=== PATIENT | female | born 1935 | race Caucasian/White ===

== ENCOUNTER 2016-09-10 16:25 | Inpatient (IN) | payer MEDICARE ==
[~2016-09-10] VITALS: Ht 152.4 cm; Wt 53.0 kg
--- NOTE | 2016-09-10 16:38 | NUR ---
EMS TO ER ROOM 9, TO BED WITH ASSIST X 2. TOLERATED WILL.
[2016-09-10 17:06] LABS: HEMATOCRIT 27.3 % (37.0-47.0); HEMOGLOBIN 8.9 g/dl (12.0-16.0); IMMATURE GRANULOCYTES 0.3 % (0.0-1.0); MEAN CELL VOLUME 96.8 fL CALC (80.0-100.0); MEAN CORPUSCULAR HGB 31.6 pG CALC (26.0-32.0); MEAN CORPUSCULAR HGB CONC 32.6 g/L CALC (32.0-36.0); NEUT# 8.2 thou/uL (2.00-7.15); RED BLOOD COUNT 2.82 mill/uL (4.20-5.60); RED CELL DISTRI WIDTH 12.7 % (11.5-15.5)
[2016-09-10] MEDS ORDERED: MEDERMA EX (17:13)
[2016-09-10] MEDS ORDERED: METFORMIN HCL1000 MG PO (17:14)
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
[2016-09-10 17:19] LABS: BILIRUBIN, TOTAL 0.4 mg/dL (0.0-1.4); CALCIUM 9.9 mg/dL (8.4-10.2); CREATININE 3.4 mg/dL (0.5-1.0); TOTAL PROTEIN 7.6 g/dL (6.3-8.2)
[2016-09-10 17:28] LABS: POTASSIUM 5.3 mmol/l (3.5-5.1)
[2016-09-10 17:34] LABS: INTERNATIONAL NORMALIZED RATIO 0.9 RATIO (0.7-1.3); PROTHROMBIN TIME 10.2 SECONDS (9.0-12.5)
[2016-09-10] MEDS ORDERED: MIDODRINE HCL5 MG PO (17:34)
[2016-09-10] MEDS ORDERED: LEVOTHYROXINE100 MCG PO (17:37)
[2016-09-10] MEDS ORDERED: MAG-OXIDE400 MG PO (17:37)
[2016-09-10] MEDS ORDERED: FERR SULFATE325 MG PO (17:37)
[2016-09-10] MEDS ORDERED: ROSUVASTATIN CA20 MG (17:38)
[2016-09-10] MEDS ORDERED: CLOPIDOGREL75 MG PO (17:40)
[2016-09-10] MEDS ORDERED: B121000 MCG PO (17:43)
[2016-09-10] MEDS ORDERED: CENTRUM PO (17:44)
[2016-09-10] MEDS ORDERED: PROTONIX40 M2 PO (17:45)
[2016-09-10] MEDS ORDERED: LOPRESSOR25 M1 PO (17:47)
[2016-09-10] MEDS ORDERED: HYDROXYZINE HCL10 MG PO (17:49)
--- NOTE | 2016-09-10 17:58 | NUR ---
MD AT BEDSIDE EVEALUATING PT AND DISCUSSING PLAN OF CARE
--- NOTE | 2016-09-10 18:32 | NUR ---
ATTEMPTED TO GIVE PATIENT REPORT ON MED SURG WAS INFORMED THEY WOULD CALL ME BACK
--- NOTE | 2016-09-10 18:55 | NUR ---
HARRISON GOEL CALLED REPORT TO MED/SURG.
--- NOTE | 2016-09-10 19:20 | NUR ---
PT TO [id number] WITH ESDRAS AND RN.
[2016-09-10 19:28] VITALS: BP 179/63
--- NOTE | 2016-09-10 19:30 | NUR ---
PT ARRIVED TO UNIT VIA STRETCHER WITH AMANDO ABRAHAM. BEDSIDE REPORT RECEIVED. AMBULATED WITH ONE PERSON ASSIST FROM STRETCHER TO BED. DENIES PAIN AT THIS TIME. NO RESPIRATORY DISTRESS NOTED AT THIS TIME. ORIENTED TO ROOM. CALL LIGHT SYSTEM REVEIWED AND IN REACH.
[2016-09-10 23:10] VITALS: BP 151/55
--- NOTE | 2016-09-11 | NUR ---
PT RESTING IN LEFT SIDE LYING POSITION. TYLENOL GIVEN FOR CRAMPING TO BILATERAL LOWER EXTREMITIES. NO RESPRITORY DISTRESS NOTED. ASSESSMENT COMPLETED AND SKIN CONDITIONS DOCUMENTED WITH PHOTOS IN CHART. IV SITE HAS NO SIGNS OF INFILTRATION OR PHLEBITIS. SAFETY MEASURES IN PLACE. CALL LIGHT WITHIN REACH.
[2016-09-11 03:32] VITALS: BP 155/50
--- NOTE | 2016-09-11 03:52 | NUR ---
PT ASLEEP AT THIS TIME. NO SIGNS OF PAIN OR RESPIRATORY DISTRESS NOTED. SPO2 REMAINS ABOVE 90% ON RA. SAFEY MEASURES IN PLACE. CALL LIGHT WITHIN REACH.
[2016-09-11 05:43] LABS: ALBUMIN 3.2 g/dL (3.2-5.0); CALCIUM 9.5 mg/dL (8.4-10.2); CREATININE 3.3 mg/dL (0.5-1.0)
[2016-09-11 05:44] LABS: POTASSIUM 5.2 mmol/l (3.5-5.1)
[2016-09-11 07:40] LABS: URINE BILIRUBIN - DIPSTICK NEGATIVE (NEGATIVE); URINE BLOOD DIPSTICK TRACE-INTACT (NEGATIVE); URINE CLARITY TURBID; URINE COLOR YELLOW; URINE GLUCOSE - DIPSTICK NEGATIVE (NEGATIVE); URINE KETONE NEGATIVE (NEGATIVE); URINE NITRITE - DIPSTICK NEGATIVE (Negative); URINE PH 5.5 (4.5-8.0); URINE PROTEIN - DIPSTICK 30 mg/dL (NEG-TRACE); URINE UROBILINOGEN - DIPSTICK 0.2 E.U./dL (0.2)
[2016-09-11 07:43] LABS: URINE LEUK ESTERASE MODERATE (NEGATIVE)
[2016-09-11 07:54] LABS: URINE SQUAMOUS EPITHELIAL CELL MODERATE EPI/hpf (0-FEW)
[2016-09-11 07:55] LABS: URINE BACTERIA MANY hpf
[2016-09-11 08:13] VITALS: BP 191/72
--- NOTE | 2016-09-11 08:13 | NUR ---
ASSESSMENT IS NEG, IV SITE IS FREE FROM REDNESS OR EDEMA. CONTINUE TO OSKIERRAVE AND PEPITO.
[2016-09-11] MEDS ORDERED: METFORMIN500 MG PO (11:20)
--- NOTE | 2016-09-11 12:45 | NUR ---
PT IS RELAXING IN BED FAMILY CAME TO THE ROOM TO SEE HER WITH PHARMACIST STUDENTS, IV SITE IS FREE FROM REDNESS OR EDEMA
[2016-09-11] MEDS ORDERED: TRIAMCINOLON0.11 TOP (13:15)
[2016-09-11] MEDS ORDERED: ELIMITE52 TOP (13:17)
[2016-09-11 16:00] VITALS: BP 137/54
--- NOTE | 2016-09-11 19:18 | NUR ---
BEDSIDE REPORT RECEIVED FROM CATRACHO BHANDARI. PT SITTING UP IN BED EATING DINNER. DENIES PAIN. NO RESPIRATORY DISTRESS NOTED. PLAN OF CARE DISCUSSED. ENCOURAGED TO VERBALIZE CONCERNS. PT STATES UNDERSTANDING. SAFETY MEASURES IN PLACE. CALL LIGHT SYSTEM REVIEWED AND IN REACH.
--- NOTE | 2016-09-11 19:18 | NUR ---
BEDSIDE REPORT RECEIVED FROM CATRACHO BHANDARI. PT SITTING UP IN BED EATING DINNER. DENIES PAIN. NO RESPIRATORY DISTRESS NOTED. PLAN OF CARE DISCUSSED. ENCOURAGED TO VERBALIZE CONCERNS. PT STATES UNDERSTANDING. SAFETY MEASURE IN PLACE. CALL LIGHT SYSTEM REVIEWED AND IN REACH.
[2016-09-11 19:20] VITALS: BP 143/59
[2016-09-11 23:15] VITALS: BP 167/67
--- NOTE | 2016-09-12 | NUR ---
PT RESTING IN BED WATCHING TV. DENIES PAIN. RESPIRATIONS EVEN AND UNLABORED. UP TO BATHROOM PERIODICALLY WITH ASSIST. NO NEEDS AT THIS TIME. SAFETY MEASURES REMAIN IN PLACE. CALL LIGHT WITHIN REACH.
--- NOTE | 2016-09-12 03:54 | NUR ---
PT ASLEEP AT THIS TIME. NO SIGNS OF PAIN NOTED. REPIRATIONS EVEN AND UNLABORED. NEW IV TO RFA INFUSING IV FLUID ADEQUATELY. SITE APPEARS HEALTHY WITH NO SINGS OF INFILTRATION OR PHLEBITIS. SAFETY MEASURES REMAIN IN PLACE. CALL LIGHT WITHIN REACH.
[2016-09-12 05:00] VITALS: BP 139/58
[2016-09-12 06:19] LABS: HEMATOCRIT 23.3 % (37.0-47.0); HEMOGLOBIN 7.6 g/dl (12.0-16.0); IMMATURE GRANULOCYTES 0.3 % (0.0-1.0); MEAN CELL VOLUME 97.1 fL CALC (80.0-100.0); MEAN CORPUSCULAR HGB 31.7 pG CALC (26.0-32.0); MEAN CORPUSCULAR HGB CONC 32.6 g/L CALC (32.0-36.0); NEUT# 5.74 thou/uL (2.00-7.15); RED BLOOD COUNT 2.4 mill/uL (4.20-5.60); RED CELL DISTRI WIDTH 12.7 % (11.5-15.5)
[2016-09-12 06:39] LABS: CREATININE 3.3 mg/dL (0.5-1.0); POTASSIUM 4.7 mmol/l (3.5-5.1)
--- NOTE | 2016-09-12 08:00 | NUR ---
SHIFT CHANGE REPORT FROM [place] CAMARENA SLEEPING AT THIS TIME, BREATHING EVEN AND NON-LABORED, IVF INFUSING, TELE MONITOR IN PLACE, CALL KIM IN REACH, WILL CONTINUE TO MONITOR.
[2016-09-12 10:16] VITALS: BP 155/53
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
[2016-09-12 14:23] VITALS: BP 172/56
[2016-09-12 16:41] VITALS: BP 151/46
--- NOTE | 2016-09-12 16:54 | NUR ---
RESTING IN BED AT THIS TIME, STATES MED GIVEN EARLIER HEALPED GREATLY IN RELIEVING HER ITCHING, ALL NEEDS ADDRESSED, CALL KIM IN REACH.
[2016-09-12 19:52] VITALS: BP 180/57
--- NOTE | 2016-09-12 20:31 | NUR ---
ACCUCHECK 123, BED TIME SNACK PROVIDED.
[2016-09-12 21:52] VITALS: BP 160/58
--- NOTE | 2016-09-13 00:30 | NUR ---
RESTING WITH EYES CLOSED, RESPIRATIONS EVEN AND UNLABORED.
[2016-09-13 05:26] VITALS: BP 162/97
--- NOTE | 2016-09-13 05:30 | NUR ---
RESTING IN SEMIFOWELRS WITH EYES CLOSED RESPIRATIONS EVEN AND UNLABORED. VOICES NO CONCERNS.
[2016-09-13 05:53] LABS: HEMOGLOBIN 7.3 g/dl (12.0-16.0); IMMATURE GRANULOCYTES 0.3 % (0.0-1.0); MEAN CELL VOLUME 98.3 fL CALC (80.0-100.0); MEAN CORPUSCULAR HGB 31.2 pG CALC (26.0-32.0); MEAN CORPUSCULAR HGB CONC 31.7 g/L CALC (32.0-36.0); NEUT# 6.6 thou/uL (2.00-7.15); RED BLOOD COUNT 2.34 mill/uL (4.20-5.60); RED CELL DISTRI WIDTH 12.8 % (11.5-15.5)
[2016-09-13 06:08] LABS: ALBUMIN 2.9 g/dL (3.2-5.0); CALCIUM 8.6 mg/dL (8.4-10.2); CREATININE 2.6 mg/dL (0.5-1.0); POTASSIUM 4.4 mmol/l (3.5-5.1)
--- NOTE | 2016-09-13 07:00 | NUR ---
SHIFT CHANGE REPORT FROM RODDY, [place] SLEEPING BUT RESPONDS TO VERBAL STIMULI, NO C/O PAIN OR DISCOMFORT AT THIS TIME, IVF INFUSING, TELE MONITOR IN PLACE, CALL KIM IN REACH.
[2016-09-13 07:36] VITALS: BP 181/58
[2016-09-13 07:57] LABS: URINE BILIRUBIN - DIPSTICK NEGATIVE (NEGATIVE); URINE BLOOD DIPSTICK NEGATIVE (NEGATIVE); URINE CLARITY CLEAR; URINE COLOR YELLOW; URINE GLUCOSE - DIPSTICK NEGATIVE (NEGATIVE); URINE KETONE NEGATIVE (NEGATIVE); URINE LEUK ESTERASE NEGATIVE (Negative); URINE NITRITE - DIPSTICK NEGATIVE (Negative); URINE PH 5.5 (4.5-8.0); URINE PROTEIN - DIPSTICK TRACE mg/dL (NEG-TRACE); URINE UROBILINOGEN - DIPSTICK 0.2 E.U./dL (0.2)
[2016-09-13 11:03] VITALS: BP 186/68
--- NOTE | 2016-09-13 12:00 | NUR ---
SITTING UP ON EDGE OF BED HAVING MEAL AT THIS TIME, ITCHING PERSISTS BUT IMPROVING, ALL NEEDS ADDRESSED, CALL JUDY IN REACCH.
--- NOTE | 2016-09-13 15:43 | NUR ---
RESTING SNUGLY IN BED UNDER COVERS AT THIS TIME, ALL NEEDS MET/ADDRESSED, CALL KIM IN REACH.
[2016-09-13 15:50] VITALS: BP 158/56
[2016-09-13 18:55] VITALS: BP 189/78
--- NOTE | 2016-09-13 19:00 | NUR ---
RECEIVED REPORT ON PATIENT FROM OFF GOING NURSE. PATIENT IS LYING IN BED, NO ACUTE DISTRESS NOTED.
[2016-09-14] VITALS: BP 184/78
--- NOTE | 2016-09-14 | NUR ---
PATIENT SITTING UP AT BEDSIDE PICKING AT BLISTERS ON SKIN AND SCRATCHING HER SKIN. PATIENT SEEMS TO BLEEDING FROM SCRATCHING. AIR MOTOR REPAIRER CLEANED UP PATIENT.
--- NOTE | 2016-09-14 04:00 | NUR ---
PATIENT RESTING QUIETLY. NO ACUTE DISTRESS NOTED.
[2016-09-14 05:14] LABS: HEMATOCRIT 22.3 % (37.0-47.0); HEMOGLOBIN 7.3 g/dl (12.0-16.0); IMMATURE GRANULOCYTES 0.3 % (0.0-1.0); MEAN CELL VOLUME 96.1 fL CALC (80.0-100.0); MEAN CORPUSCULAR HGB 31.5 pG CALC (26.0-32.0); MEAN CORPUSCULAR HGB CONC 32.7 g/L CALC (32.0-36.0); NEUT# 6.27 thou/uL (2.00-7.15); RED BLOOD COUNT 2.32 mill/uL (4.20-5.60); RED CELL DISTRI WIDTH 12.6 % (11.5-15.5)
[2016-09-14 05:17] LABS: CALCIUM 8.8 mg/dL (8.4-10.2); CREATININE 2.5 mg/dL (0.5-1.0); POTASSIUM 4.4 mmol/l (3.5-5.1)
[2016-09-14 05:20] VITALS: BP 148/58
--- NOTE | 2016-09-14 07:00 | NUR ---
SHIFT CHANGE REPORT FROM JASON, [place] SLEEPING AT THIS TIME BUT RESPONDS TO VERBAL STIMULI, C/O ITCHING AT THIS TIME AND STATES BENADRYL RELIEVES CONDITION, IVF INFUSING, CALL KIM IN REACH.
[2016-09-14 07:35] VITALS: BP 164/58
[2016-09-14] MEDS ORDERED: DIPHENHYDRAM25 MG PO (11:28)
[2016-09-14 12:17] VITALS: BP 145/53
--- NOTE | 2016-09-14 13:00 | NUR ---
PT INFORMED OF D/C ORDERS, ENCOURAGED TO SIT AND HAVE MEAL, ALL QUESTIONS ADDRESSED, CALL KIM IN REACH.
--- NOTE | 2016-09-14 16:49 | NUR ---
Discharge instructions given. Patient verbalizes understanding of same. Discharged in stable condition via Wheelchair to Home with *Other. All belongings sent with pt.
== END 2016-09-14 17:00 | disposition home health service (06) | DRG 683 ==
LOC: ENPENDDIS → ED 16:25 → ED-I 18:00 → ED 18:04 → MS2 18:05
PROVIDERS: Emergency Medicine; Internal Medicine; ADMIT Internal Medicine; ATTEND Internal Medicine
DX: N17.9 Acute kidney failure, unspecified (principal); N39.0 Urinary tract infection, site not specified; E87.2 Acidosis; I11.0 Hypertensive heart disease with heart failure; E11.22 Type 2 diabetes mellitus with diabetic chronic kidney disease; B88.0 Other acariasis; N18.4 Chronic kidney disease, stage 4 (severe); I25.10 Atherosclerotic heart disease of native coronary artery without angina pectoris; E87.5 Hyperkalemia; I95.1 Orthostatic hypotension; E86.0 Dehydration; D63.1 Anemia in chronic kidney disease; E83.39 Other disorders of phosphorus metabolism; Z79.02 Long term (current) use of antithrombotics/antiplatelets; Z95.5 Presence of coronary angioplasty implant and graft; Z79.84 Long term (current) use of oral hypoglycemic drugs; Z95.1 Presence of aortocoronary bypass graft
CPT/HCPCS: G0378; J0885

== ENCOUNTER 2016-10-15 16:35 | Emergency (ER) | payer MEDICARE, BC ==
[~2016-10-15] VITALS: Ht 152.4 cm; Wt 55.0 kg
[~2016-10-15 16:35] MED LIST: B121000 MCG PO; CENTRUM PO; CLOPIDOGREL75 MG PO; DIPHENHYDRAM25 MG PO; ELIMITE52 TOP; FERR SULFATE325 MG PO; HYDROXYZINE HCL10 MG PO; LEVOTHYROXINE100 MCG PO; LOPRESSOR25 M1 PO; MAG-OXIDE400 MG PO; MEDERMA EX; METFORMIN HCL1000 MG PO; METFORMIN500 MG PO; MIDODRINE HCL5 MG PO; PROTONIX40 M2 PO; ROSUVASTATIN CA20 MG; TRIAMCINOLON0.11 TOP
[2016-10-15] MEDS ORDERED: CLINDAMYCIN300 M1 PO (17:47)
[2016-10-15] MEDS ORDERED: TRAMADOL HYDROC50 MG PO (17:47)
[2016-10-15 18:57] VITALS: BP 165/70
== END 2016-10-15 19:09 | disposition home or self-care (01) ==
LOC: ED 16:35
DX: S80.02XA Contusion of left knee, initial encounter (principal); S80.01XA Contusion of right knee, initial encounter; S33.5XXA Sprain of ligaments of lumbar spine, initial encounter; J02.9 Acute pharyngitis, unspecified; M47.816 Spondylosis without myelopathy or radiculopathy, lumbar region; I10 Essential (primary) hypertension; E11.9 Type 2 diabetes mellitus without complications; I25.10 Atherosclerotic heart disease of native coronary artery without angina pectoris; W10.9XXA Fall (on) (from) unspecified stairs and steps, initial encounter; Y92.008 Other place in unspecified non-institutional (private) residence as the place of occurrence of the external cause; Z95.5 Presence of coronary angioplasty implant and graft

== ENCOUNTER 2020-09-28 13:49 | Inpatient (IN) | payer MEDICARE, BC ==
[~2020-09-28] VITALS: Ht 157.5 cm; Wt 59.7 kg
[~2020-09-28 13:49] MED LIST changes: +CLINDAMYCIN300 M1 PO; +TRAMADOL HYDROC50 MG PO
--- NOTE | 2020-09-28 13:58 | NUR ---
ASSISTED FROM STETCHER TO BED ALERT ORIENTED AT THI TIME
[2020-09-28 14:39] LABS: HEMATOCRIT 40.5 % (37.0-47.0); HEMOGLOBIN 12.6 g/dl (12.0-16.0); IMMATURE GRANULOCYTES 0.5 % (0.0-5.0); MEAN CELL VOLUME 98.1 fL CALC (80.0-100.0); MEAN CORPUSCULAR HGB 30.5 pG CALC (26.0-32.0); MEAN CORPUSCULAR HGB CONC 31.1 g/dL CAL (32.0-36.0); NEUT# 11.24 thou/uL (2.00-7.15); RED BLOOD COUNT 4.13 mill/uL (4.20-5.60); RED CELL DISTRI WIDTH 13.5 % (11.5-15.5)
[2020-09-28 14:54] LABS: ALBUMIN 3.5 g/dL (3.2-5.0); BILIRUBIN, TOTAL 0.7 mg/dL (0.0-1.4); CREATININE 3.3 mg/dL (0.5-1.0); POTASSIUM 4.3 mmol/l (3.5-5.1); TOTAL PROTEIN 6.4 g/dL (6.3-8.2)
--- NOTE | 2020-09-28 14:57 | NUR ---
DAUGHTER AT BEDSIDE, INTERACTIVE AT THIS TIME,STATES FEELS SLIGHTLY BETTER
--- NOTE | 2020-09-28 15:42 | NUR ---
RESTING IN BED WITH FAMILY AT THE BEDSIDE
--- NOTE | 2020-09-28 16:56 | NUR ---
RESTING IN ROOM WITH FAMILY AT THE BEDSIDE,WARM BLANKET APPLIED, ALERT ORIENTED
--- NOTE | 2020-09-28 18:07 | NUR ---
REPORTS BEING COLD AT THIS TIME, NORMAL TEMP
[2020-09-28 18:44] LABS: URINE BILIRUBIN - DIPSTICK NEGATIVE (NEGATIVE); URINE BLOOD DIPSTICK LARGE (NEGATIVE); URINE COLOR YELLOW; URINE GLUCOSE - DIPSTICK NEGATIVE (NEGATIVE); URINE KETONE TRACE mg/dL (NEGATIVE); URINE LEUK ESTERASE MODERATE (NEGATIVE); URINE NITRITE - DIPSTICK NEGATIVE (Negative); URINE PROTEIN - DIPSTICK >=300 mg/dL (NEG-TRACE); URINE UROBILINOGEN - DIPSTICK 0.2 E.U./dL (0.2)
[2020-09-28 18:53] LABS: URINE BACTERIA FEW hpf; URINE SQUAMOUS EPITHELIAL CELL FEW EPI/hpf (0-FEW)
--- NOTE | 2020-09-28 18:59 | NUR ---
VOMITING SHAKING CHILLS, ELEVATED TEMP, NOTIFIED PROVIDER
[2020-09-28 22:05] VITALS: BP 103/53
--- NOTE | 2020-09-28 22:05 | NUR ---
PT ARRIVED TO THE MED SURG UNIT VIA STRETCHER ACCOMPANIED BY ED NURSE. PT APPEARS TO BE STABLE AT THIS TIME. PT SLID HERSELF FROM STRETCHER TO THE BED. SHE WAS WET WITH URINE. PT CLEANED OF URINE, SHE STATES THAT SHE IS NOT INCONTINENT AND WILL CALL WHEN SHE NEEDS TO GET UP TO BSC. SHIRA-CARE PROVIDED AT THIS TIME. MILD REDNESS AND A SMALL BROKEN SKIN AREA TO COCCYX, PICTURES WERE TAKEN AND PLACED IN CHART AND BARRIER CREAM PLACED. WILL ATTEMPT TO OBTAIN AQUACILL PAD FOR COCCYX AREA FOR PLACEMENT. PT ALSO HAS A CLOSED RASH TO UPPER BACK AREA THAT SHE STATES HURTS TO TOUCH AND ITCHES. PT STATES THAT SHE HAS NOT SEEN A PCP OR GOGGLES ASSEMBLER FOR THIS RASH AND HAS HAD IT ABOUT 3WEAKS. I ATTEMPTED TO WASH HER BACK AND PLACE LOTION TO IT FOR MOISTURE, BUT SHE STATES THAT IT IS EXTREMELY SENSATIVE TO THE TOUCH. NO OPEN AREAS VISUALIZED TO RASH AREA, I DID NOT OBSERVE ANY DRAINAGE FROM SAID AREA. V/S ASSESSED AT THIS TIME AND PT ORIENTED TO THE ROOM, CALL SYSTEM, LIGHTS AND BED. BED ALARM HAS BEEN PLACED ON FOR SAFETY PRECAUTIONS FOR THE NIGHT FOR OBSERVATION AT THIS TIME.
--- NOTE | 2020-09-28 22:16 | NUR ---
WHEELED VIA STRETCHER TO MS
[2020-09-28 23:45] VITALS: BP 103/53
--- NOTE | 2020-09-28 23:52 | NUR ---
PT WAS SLEEPING, AWOKE TO MY VOICE. PT MEDICATED ORDERS PROVIDE. V/S ASSESSED AT THIS TIME.
[2020-09-29] VITALS: BP 95/48
--- NOTE | 2020-09-29 03:52 | NUR ---
PT IS SLEEPING AT THIS TIME. NO S/O DSITRESS NOTED.
[2020-09-29 04:00] VITALS: BP 132/59
--- NOTE | 2020-09-29 04:59 | NUR ---
PT MEDICATED ORDERS PROVIDE AND ASSISTED TO BSC AND BACK TO BED. RECIEVED PHONE CALL ON HER CELL PHONE AND LEFT TALKING ON PHONE. 300CC OF DARK CLOUDY YELLOW URINE AT THIS TIME. CALL LIGHT LEFT AT BEDSIDE.
[2020-09-29 05:38] LABS: HEMOGLOBIN 11.2 g/dl (12.0-16.0); MEAN CORPUSCULAR HGB 31.1 pG CALC (26.0-32.0); MEAN CORPUSCULAR HGB CONC 31.1 g/dL CAL (32.0-36.0); RED BLOOD COUNT 3.6 mill/uL (4.20-5.60); RED CELL DISTRI WIDTH 13.9 % (11.5-15.5)
[2020-09-29 06:11] LABS: CREATININE 3.6 mg/dL (0.5-1.0); MAGNESIUM 2.2 mg/dL (1.6-2.3)
[2020-09-29] MEDS ORDERED: PREDNISONE5 MG PO (07:56)
[2020-09-29] MEDS ORDERED: LEVOTHYROXIN75 MCG PO (07:56)
[2020-09-29] MEDS ORDERED: PROTONIX40 M2 PO (07:56)
--- NOTE | 2020-09-29 08:00 | NUR ---
ALERT, RESTING IN THE BED. IV INFUSING. O2 RA. DENIES NAUSEA DENIES VOMITING. C/O MILD DISCOMFORT TO THE RIGHT FLANK AREA. PT STATES SHE IS GOING TO ASK THE ROUNDING PROVIDER ABOUT THE RASH TO HER BACK. REPOSITIONED FOR COMFORT, SIDE RAILS UP CALL LIGHT IN REACH BED LOCKED IN LOW POSITION, ALL SAFTY MEASURES IN PLACE. WILL CONTINUE TO MONIOTR THE PATIENT.
[2020-09-29] MEDS ORDERED: MAG OXIDE400 MG PO (08:05)
[2020-09-29] MEDS ORDERED: CRANBERR3 PO (08:06)
[2020-09-29] MEDS ORDERED: NOVOLOG100 UNIT/M SC (08:06)
[2020-09-29 08:31] VITALS: BP 133/66
--- NOTE | 2020-09-29 10:07 | NUR ---
C/O PAIN MED PER ORDER, WILL CONTINUE TO MONIOTR THE PATIENT.
--- NOTE | 2020-09-29 10:08 | NUR ---
PT RESTING COMOFRTABLE AT THIS TIME. NO DISTRESS NOTED. WILL CONTINUE TO MONITOR.
[2020-09-29 10:25] VITALS: BP 92/44
--- NOTE | 2020-09-29 12:00 | NUR ---
EDUCATED PT ON IV ABT. ENCOURAGED PATIENT TO EAT HER LUNCH. NO DISTRESS NOTED AT THIS TIME.
--- NOTE | 2020-09-29 14:21 | NUR ---
REPORTED OFF TO THE ON COMING NURSE.
[2020-09-29 14:36] VITALS: BP 112/46
--- NOTE | 2020-09-29 16:08 | NUR ---
PATIENT RESTING IN BED AT THIS TIME. PATIENT DENIES ANY NEEDS AND OR PAIN. SIDERALILS ARE UP X2 CALL LIGHT AND PERSONAL ITEMS WITHIN REACH. TELE MONITOR AND BEING MONITORED BY ED.
[2020-09-29 19:50] VITALS: BP 146/64
--- NOTE | 2020-09-29 20:00 | NUR ---
PT ALERT AND ORIENTED. SHE IS LAYING IN BED SLEEPING AT THIS TIME. IV SITE STILL INTACT AND FLUIDS STILL CONTINUE RUNNING. NO COMPLAINT OF PAIN AT THIS TIME. TELE READING SR CALL LIGHT AND BELONGING WITHIN REACH
--- NOTE | 2020-09-29 21:43 | NUR ---
PT COMPLAIN OF ITCHNESS ON HER ARMS THAT SHE HAS BEEN DEALING WITH FOR A COUPLE OF MONTHS AND NORMALLY TAKES BENADRYL FOR IT. DR. VILLAR INFORMED AND SAYS OKAY TO PT GETTING BENADRYL Q8 PRN.
[2020-09-30] VITALS: BP 160/62
--- NOTE | 2020-09-30 | NUR ---
PT SLEEPING PEACFULLY. NO COMPLAINT/ SIGN OF PAIN. CALL LIGHT WITHIN RANGE. WILL CONTINUE TO MONITOR
[2020-09-30 04:00] VITALS: BP 144/68
[2020-09-30 05:02] LABS: HEMATOCRIT 31.5 % (37.0-47.0); HEMOGLOBIN 9.8 g/dl (12.0-16.0); MEAN CELL VOLUME 99.4 fL CALC (80.0-100.0); MEAN CORPUSCULAR HGB 30.9 pG CALC (26.0-32.0); MEAN CORPUSCULAR HGB CONC 31.1 g/dL CAL (32.0-36.0); RED BLOOD COUNT 3.17 mill/uL (4.20-5.60); RED CELL DISTRI WIDTH 13.9 % (11.5-15.5)
[2020-09-30 05:15] LABS: CREATININE 3.8 mg/dL (0.5-1.0); POTASSIUM 4.6 mmol/l (3.5-5.1)
[2020-09-30 05:22] LABS: ALBUMIN 2.2 g/dL (3.2-5.0)
[2020-09-30 07:33] VITALS: BP 140/59
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
--- NOTE | 2020-09-30 08:41 | NUR ---
BENEDRYL GIVEN WITH AM MEDS FOR ITCHING. ACCU CHECK IMPROVED THIS MORNING TO 73.
--- NOTE | 2020-09-30 09:40 | NUR ---
DR. HAMMER AND JAY DIALLO AT BEDSIDE.
--- NOTE | 2020-09-30 10:15 | NUR ---
NEW #24G IV SITE STARTED TO RFA AT 100ML/HR PER ORDER. PT SUPERVISED TO BSC FOR CLEAR YELLOW VOID.
[2020-09-30 10:17] VITALS: BP 162/48
--- NOTE | 2020-09-30 15:00 | NUR ---
SUPERVISED TO BSC FOR MODERATE HARD BOWEL MOVEMENT. TELE SINUS RYTHM WITH IVCD AND 1ST DEGREE AVB HEART RATE IN THE 60S. CALL LIGHT WITHIN REACH.
[2020-09-30 15:02] VITALS: BP 159/65
[2020-09-30 19:00] VITALS: BP 138/100
--- NOTE | 2020-09-30 19:56 | NUR ---
PHYSICAL ASSESMENT COMPLETE. PT CURRENTLY DENIES PAIN OR DISCOMFORT. SCHEDULED MEDICATIONS AND PRN MEDICATION ADMINISTERED, SEE E-MAR. PT DENIES ANY NEEDS AT THIS TIME. PLAN OF CARE REVIEWED, PT DENIES QUESTIONS, VERBALIZES UNDERSTANDING. ITEMS WITHIN REACH, BED LOCKED IN LOW POSITION W/ BEDRAILS UP X2. CALL KIM WITHIN REACH, AGREES TO CALL PRN.
[2020-10-01] VITALS (7 sets, daily range): BP systolic 143–188; BP diastolic 63–78
--- NOTE | 2020-10-01 00:07 | NUR ---
PT LAYING IN BED WITH EYES CLOSED, APPEARS TO BE SLEEPING, APPEARS COMFORTABLE AND IN NO DISTRESS. RESPIRATIONS REGULAR AND UNLABORED. ITEMS REMAIN WITHIN REACH, CALL KIM REMAINS WITHIN REACH. BED REMAINS LOCKED AND IN LOW POSITION WITH BEDRAILS UP X2. WILL CONTINUE TO MONITOR.
--- NOTE | 2020-10-01 04:00 | NUR ---
PT RESTING IN BED, NO SIGNS OF DISTRESS NOTED, RESP EVEN AND UNLABORED. PT VOICES NO NEEDS OR COMPLAINTS AT THIS TIME. CALL LIGHT IN REACH, CONTINUE TO MONITOR.
[2020-10-01 05:24] LABS: HEMATOCRIT 34.5 % (37.0-47.0); HEMOGLOBIN 10.8 g/dl (12.0-16.0); MEAN CELL VOLUME 97.7 fL CALC (80.0-100.0); MEAN CORPUSCULAR HGB 30.6 pG CALC (26.0-32.0); MEAN CORPUSCULAR HGB CONC 31.3 g/dL CAL (32.0-36.0); RED BLOOD COUNT 3.53 mill/uL (4.20-5.60); RED CELL DISTRI WIDTH 13.5 % (11.5-15.5)
[2020-10-01 05:47] LABS: ALBUMIN 2.6 g/dL (3.2-5.0); CREATININE 3.4 mg/dL (0.5-1.0); MAGNESIUM 2.2 mg/dL (1.6-2.3)
[2020-10-01 05:54] LABS: POTASSIUM 5.7 mmol/l (3.5-5.1)
--- NOTE | 2020-10-01 08:16 | NUR ---
PT SEEN AWAKE, ALERT, PLEASANT. NO DISTRESS NOTED. PT UPDATED ON RESULTS FROM URINE INDICATING UTI.
--- NOTE | 2020-10-01 09:21 | NUR ---
PT WITH PAINFUL AREA TO RIGHT SIDE OF HER BACK, EXTENDS FROM MIDBACK AROUND FLANK TO FRONT, IN SHINGLES. AWAITS PHYSICIAN ROUNDS.
--- NOTE | 2020-10-01 12:35 | NUR ---
PT WITH MANY ALLERGIES, SKIN SENSITIVITY. ZOFRAN PROVIDED PT IS NAUSEATED TRYING TO DRINK THE KAEXELATE. BP MED PROVIDED PT'S PRESSURE IN THE 180 RANGE SYSTOLICALLY.
--- NOTE | 2020-10-01 15:45 | NUR ---
PT SEEN RESTING IN THE BED, NO DISTRESS AND NO COMPLAINTS OFFERED. PT STILL HAS THE KAEXELATE AT BEDSIDE, NOT ABLE TO TOLERATE TASTE OR CONSISTENCY.
[2020-10-02] VITALS: BP 145/74
[2020-10-02 03:45] VITALS: BP 154/70
[2020-10-02 05:42] LABS: HEMATOCRIT 31.6 % (37.0-47.0); HEMOGLOBIN 9.8 g/dl (12.0-16.0); MEAN CELL VOLUME 97.5 fL CALC (80.0-100.0); MEAN CORPUSCULAR HGB 30.2 pG CALC (26.0-32.0); RED BLOOD COUNT 3.24 mill/uL (4.20-5.60); RED CELL DISTRI WIDTH 13.5 % (11.5-15.5)
[2020-10-02 06:03] LABS: ALBUMIN 2.4 g/dL (3.2-5.0); CREATININE 2.8 mg/dL (0.5-1.0)
[2020-10-02 06:13] LABS: POTASSIUM 5.4 mmol/l (3.5-5.1)
[2020-10-02 07:30] VITALS: BP 176/69
--- NOTE | 2020-10-02 08:00 | NUR ---
PT RESTING THE BED AXOX3, IV INFUSING. PT ON RA, NO RESP DISTRESS NOTED AT THIS TIME. EDUCATED ON K+ AND MEDICATION. DENIES PAIN. REPOSITIOEND FOR COMOFRT, SIDE RAILS UP CALL LIGHT IN REACH, BED LOCKED IN LOW POSITION, ALL SAFTY MEASURES IN PLACE. WILL CONTINUE TO MONITOR THE PATIENT.
--- NOTE | 2020-10-02 10:05 | NUR ---
PT RESTING COMFORTABLE TALKING ON HER CELL PHONE. NO DISTRESS NOTED AT THIS TIME.
[2020-10-02 10:23] VITALS: BP 176/71
--- NOTE | 2020-10-02 12:10 | NUR ---
B/P REPORTED TO PROVIDER NO NEW ORDERS. PT RESTING COMOFRTABLE NO COMPALINTS VOICED AT THIS TIME.
--- NOTE | 2020-10-02 14:56 | NUR ---
PT RESTING COMOFRTABLE IN THE BED NO DISTRESS NOTED AT THIS TIME.
[2020-10-02 15:16] VITALS: BP 174/73
--- NOTE | 2020-10-02 15:30 | NUR ---
RECIEVED REPORT FROM AMANDO GREY
--- NOTE | 2020-10-02 15:35 | NUR ---
YOEL, JAY NOTFIED OF ELEVATED BP. NEW ORDERS TO BE OBTAINED.
--- NOTE | 2020-10-02 15:50 | NUR ---
RECIEVED REPORT FROM AMANDO GREY
--- NOTE | 2020-10-02 16:16 | NUR ---
PT RESTING IN SEI FOLWERS POSITION. PT IS A/O X3. REPSIRATIONS ARE EVEN AND UNLABORED WITH NO DISTRESS NOTED. #24G IN RFA INFUSING IWTH IVF PER ORDER, SITE REMAINS HEALTHY AND PATENT. PT COMPLAINS OF NAUSEA, ZOFRAN ADMINISTERED. PT TOLERATED WELL. WARM BLANKET PROVIDED. PT DENIES OF ANY OTHER PAINS OR DISCOMFORTS. ALL SAFETY PRECAUTIONS ARE IN PLACE WITH CALL LIGHT IN REACH. WILL CONTINUE TO MONITOR.
--- NOTE | 2020-10-02 17:42 | NUR ---
CATAPRES ADMINISTERED FOR ELEVATED BP
[2020-10-02 19:00] VITALS: BP 154/68
--- NOTE | 2020-10-02 19:14 | NUR ---
PT IS AWAKE AND TALKING ON CELLPHONE. ACKNOWLEDGED MY PRESENSE, DENIED ANY NEEDS AT THIS TIME. CALL LIGHT AT SIDE.
--- NOTE | 2020-10-02 20:00 | NUR ---
ASSISTED PT TO BSC AND BACK TO BED. PT WAS STABLE ON HER FEET PIVOTING TO BSC. SHE WAS ABLE TO REPOSITION HERSELF IN THE BED W/OUT ASSISTANCE. PT LOCX3 AT THIS TIME. BED ALARM IS ON AND CALL LIGHT AT SIDE. PT AGREED TO CALL FOR ASSISTANCE PRIOR TO AMBULATING. ASSESSMENT COMPLETED AT THIS TIME ALSO. DENIES PAIN/N/V OR SOB. SMALL AMOUNT OF DARK BROWN STOOL OUTPUT AT THIS TIME W/CLEAR YELLOW URINE.
[2020-10-03] VITALS (10 sets, daily range): BP systolic 150–195; BP diastolic 60–82
--- NOTE | 2020-10-03 00:54 | NUR ---
PT CALLED FOR ASSISTANCE TO BSC. ACCOUNTANT HELPER IS IN WITH PT AT THIS TIME ASSISTING AND OBTAINING V/S.
--- NOTE | 2020-10-03 04:00 | NUR ---
V/S OBTAINED, PT IS AWAKE. NO DISTRESSES NOTED, DENIES ANY OTHER NEEDS.
[2020-10-03 05:42] LABS: HEMATOCRIT 30.8 % (37.0-47.0); HEMOGLOBIN 9.6 g/dl (12.0-16.0); MEAN CELL VOLUME 97.8 fL CALC (80.0-100.0); MEAN CORPUSCULAR HGB 30.5 pG CALC (26.0-32.0); MEAN CORPUSCULAR HGB CONC 31.2 g/dL CAL (32.0-36.0); RED BLOOD COUNT 3.15 mill/uL (4.20-5.60); RED CELL DISTRI WIDTH 13.8 % (11.5-15.5)
[2020-10-03 06:11] LABS: CREATININE 2.5 mg/dL (0.5-1.0)
[2020-10-03 06:19] LABS: POTASSIUM 5.2 mmol/l (3.5-5.1)
--- NOTE | 2020-10-03 07:23 | NUR ---
PATIENT LAYING IN BED AT THIS TIME. ALERT AND ORIENTED AT THIS TIME X 3. PATIENT DENIES ANY PAIN AT THIS TIME. PATIENT SET DESIGNER DONE SEE INTERVENTIONS AT THIS TIME. PATIENT SIDERAILS ARE UP X 2 AND CALL LIGHT IS WITHIN REACH.
--- NOTE | 2020-10-03 07:27 | NUR ---
PATIENT LAYIING IN BED BP TAKEN AT THIS TIME 195/72 0.1MG CATAPRES GIVEN WILL CONTINUE TO MONITOR.
--- NOTE | 2020-10-03 09:00 | NUR ---
PATIENT BP RE-TAKEN AND AT THIS TIME BP IS 172/82 AND CONTINUES TO DECLINE. PATIENT GIVEN MORNING MEDICATION TO INCLUDE NORVASC 5MG.
--- NOTE | 2020-10-03 11:01 | NUR ---
PATIENT'S BP RECORED AT 177/77 IVÁN AN NOTIFIED AND ORDERS GIVEN TO GIVE 0.1MG OF CATAPRESS NOW. MEDICATION GIVEN AT THIS TIME WILL CONTINUE TO MONITOR.
--- NOTE | 2020-10-03 11:36 | NUR ---
PATIENT'S BP RETAKEN AT THIS TIME AND IT IS 171/67 PROVIDER MADE AWARE AND IVÁN AN APRN. WILL CONTINUE TO MONITOR.
--- NOTE | 2020-10-03 11:49 | NUR ---
PATIENT RESTING IN BED AT THIS TIME DENIES ANY NEEDS SIDERAILS ARE UP CALL LIGHT WITHIN REACH.
--- NOTE | 2020-10-03 13:19 | NUR ---
PT REFUSED INITIAL AERSOLIZED BRONCHODILATOR THERAPY AT THIS TIME. PT C C/O DRY MOUTH AND WEAKNESS. NO ACUTE DISTRESS NOTED AT THIS TIME. PT ON RA. VSS.
--- NOTE | 2020-10-03 16:01 | NUR ---
PATIENT RESTING IN BED AT THIS TIME. PATINET DENIES ANY NEED SIDERAILS ARE UP CALL LIGHT IS WIHTIN REACH
--- NOTE | 2020-10-03 19:40 | NUR ---
PT AWAKE, NO S/O DISTRESS NOTED AT THIS TIME. SILK CONDITIONER ENTERING TO OBTAIN V/S
--- NOTE | 2020-10-03 22:04 | NUR ---
PT C/O LIPS BEING DRY, SHE STATES SHE IS GETTING FEVER BLISTERS TO HER MOUTH AND NOSE, SHE ALSO C/O ITCHY DRY SORES ON HER ARMS AND BACK THAT HAVE BEEN HERE FOR SEVERAL WEEKS, BUT STATES THAT THEY ARE GETTING WORSE. SHE REPORTS THAT HER THROAT IS DRY AND THAT HER COUGH IS NOT GETTING BETTER AND SHOWED ME GREEN SPUTUM THAT SHE COUGHED UP. I ASKED HER IF SHE DISCUSSED ALL OF THESE DISTRESSES WITH THE SSIS ETL DEVELOPER OR PHYSICIAN EARLIER THIS DAY WHEN SHE SAW HIM AND SHE STATED "NO, HE GOES TOO FAST." I ENCOURAGED HER TO DISCUSS THESE ITEMS WITH HIM IN THE MORNING AND TOLD HER THAT I WILL NOTIFY THE DAY NURSE OF THE C/O SO THAT THE DOCTOR CAN BE MADE AWARE. SHE VERBALIZED THAT SHE IS OKAY WITH THAT. MEDICATED WITH BENEDRYL, SHE HAS ALREADY BEEN PROVIDED LIP BALM, VASELINE, KLEENEX, HAND FISHING MANAGER AND LOTION FOR COMFORT MEASURES. ICE CHIPS OFFERED/DENIED.
[2020-10-04] VITALS: BP 168/66
--- NOTE | 2020-10-04 | NUR ---
PT WAS SLEEPING, STENCIL SPRAYER IN WITH PT OBTAINING V/S. PT WAS ASSISTED TO BSC AND BACK TO THE BED. NO S/O DISTRESS AT THIS TIME. PT DENIES ANY NEEDS. CALL LIGHT AT SIDE.
--- NOTE | 2020-10-04 03:55 | NUR ---
ASSISTED PT TO BSC AND BACK TO BED. SHE C/O EXTREME SENSITIVITY TO UPPER BACK "RASH". SHE STATES THAT SHE WONDERS IF SHE HAS SHINGLES DUE TO THE SENSITIVITY THAT "FEELS LIKE NERVE ENDINGS PRICKLY." I INSTRUCTED HER TO DISCUSS THIS WITH THE DOCTOR OR DIMENSION MILL WORKER WHEN THEY ARE IN TODAY AND THAT I WOULD INFORM DAY NURSE AND PLACE NOTES IN THE CHART FOR PHYSICIAN KNOWLEDGE.
[2020-10-04 04:00] VITALS: BP 183/68
[2020-10-04 05:15] LABS: HEMATOCRIT 32.4 % (37.0-47.0); HEMOGLOBIN 9.9 g/dl (12.0-16.0); MEAN CELL VOLUME 97.3 fL CALC (80.0-100.0); MEAN CORPUSCULAR HGB 29.7 pG CALC (26.0-32.0); MEAN CORPUSCULAR HGB CONC 30.6 g/dL CAL (32.0-36.0); RED BLOOD COUNT 3.33 mill/uL (4.20-5.60); RED CELL DISTRI WIDTH 13.6 % (11.5-15.5)
[2020-10-04 05:34] LABS: CREATININE 2.3 mg/dL (0.5-1.0); MAGNESIUM 1.7 mg/dL (1.6-2.3); POTASSIUM 5.1 mmol/l (3.5-5.1)
[2020-10-04 07:10] VITALS: BP 188/69
--- NOTE | 2020-10-04 07:24 | NUR ---
PT RESTING COMFORTABLY IN BED, IN GOOD SPIRITS THIS MORING. NO ACUTE DISTRESS NOTED. VSS. STAFF THERAPIST TO MONITOR.
--- NOTE | 2020-10-04 09:36 | NUR ---
PT IS ALERT, ORIENTED X 3. LUNGS CLEAR, RA. PT DOES HAVE COUGH THAT SHE IS UNABLE TO CLEAR WELL, STATES SECRETIONS TOO THICK. REDNESS TO SKIN ON BACK HAS REDUCED IN SIZE COMPARED TO 2-3 DAYS PRIOR. NO DISTRESS, NO COMPLAINTS. PT ON PHONE OFTEN.
[2020-10-04 10:53] VITALS: BP 134/50
--- NOTE | 2020-10-04 13:20 | NUR ---
PT IN BED COMFORTABLE, JOKING WITH FULL SERVICE VENDING DRIVER. NAD. VSS. FULL SERVICE VENDING DRIVER TO MONITOR.
--- NOTE | 2020-10-04 13:29 | NUR ---
PT CONTINUES AT REST IN THE BED, CONPLAINS OF SORES INSIDE MOUTH IN FEVER BLISTERS. NAD.
[2020-10-04 15:12] VITALS: BP 133/60
--- NOTE | 2020-10-04 15:53 | NUR ---
PT REMAINS AT REST IN THE BED IN NO ACUTE DISTRESS, ANTICIPATES DISCHARGE HOME TOMORROW.
[2020-10-04 19:50] VITALS: BP 150/61
--- NOTE | 2020-10-04 22:41 | NUR ---
PATIENT IS ALERT AND ORIENTED X3 WITH SOME CONFUSION. RESPIRATIONS EASY. ON TELEMETRY. NO COMPLAINTS OF PAIN VERBALIZED. ABLE TO MAKE NEEDS KNOWN. FALL PRECAUTIONS IN PLACE. COMPLIANT WITH MEDICATIONS. BED IN LOW POSITION. CALL LIGHT WITHIN REACH.
[2020-10-05] VITALS: BP 169/70
[2020-10-05 04:00] VITALS: BP 167/73
[2020-10-05 05:38] LABS: HEMATOCRIT 31.7 % (37.0-47.0); MEAN CELL VOLUME 97.8 fL CALC (80.0-100.0); MEAN CORPUSCULAR HGB 30.9 pG CALC (26.0-32.0); MEAN CORPUSCULAR HGB CONC 31.5 g/dL CAL (32.0-36.0); RED BLOOD COUNT 3.24 mill/uL (4.20-5.60); RED CELL DISTRI WIDTH 13.7 % (11.5-15.5)
[2020-10-05 05:44] LABS: CREATININE 2.5 mg/dL (0.5-1.0); POTASSIUM 4.7 mmol/l (3.5-5.1)
[2020-10-05 08:00] VITALS: BP 168/73
--- NOTE | 2020-10-05 08:26 | NUR ---
PT TO BSC WITH STANDBY ASSIST, CALLS FOR HELP APPROPRIATELY. PT CONTINUES WITH RIGHT FLANK PAIN, SENSITIVE TO TOUCH.
[2020-10-05 10:50] VITALS: BP 159/67
[2020-10-05] MEDS ORDERED: KEFLEX500 MG PO (11:03)
[2020-10-05] MEDS ORDERED: AMLODIPINE BESYL5 MG PO (11:03)
[2020-10-05] MEDS ORDERED: GUAIFENESI100 MG/51 PO (11:03)
[2020-10-05] MEDS ORDERED: SALONPAS PAIN R TD (11:03)
--- NOTE | 2020-10-05 14:45 | NUR ---
PT HAS BEEN DISCHARGED TO HOME. HER CAREGIVER ARRIVED, ASSISTED WITH GETTING PT DRESSED. PT VERBALIZED UNDERSTANDING OF DC INSTRUCTIONS, TAKEN BY WHEELCHAIR TO LOBBY.
== END 2020-10-05 14:55 | disposition home or self-care (01) | DRG 872 ==
LOC: ED 13:49 → ED-I 16:11 → ED 16:11 → ED-I 18:36 → ED 19:01 → MS2 19:02
PROVIDERS: Family Medicine; Internal Medicine Nephrology; Nurse Practitioner; ADMIT Internal Medicine; ATTEND Internal Medicine
DX: A41.9 Sepsis, unspecified organism (principal); N10 Acute pyelonephritis; N17.9 Acute kidney failure, unspecified; N18.4 Chronic kidney disease, stage 4 (severe); E87.1 Hypo-osmolality and hyponatremia; E87.2 Acidosis; R65.20 Severe sepsis without septic shock; I10 Essential (primary) hypertension; E11.22 Type 2 diabetes mellitus with diabetic chronic kidney disease; D63.1 Anemia in chronic kidney disease; E86.9 Volume depletion, unspecified; I95.9 Hypotension, unspecified; J40 Bronchitis, not specified as acute or chronic; B02.9 Zoster without complications; E87.5 Hyperkalemia; B96.20 Unspecified Escherichia coli [E. coli] as the cause of diseases classified elsewhere; I25.10 Atherosclerotic heart disease of native coronary artery without angina pectoris; Z95.1 Presence of aortocoronary bypass graft; Z20.822 Contact with and (suspected) exposure to COVID-19; Z79.4 Long term (current) use of insulin; Z95.5 Presence of coronary angioplasty implant and graft; Z88.0 Allergy status to penicillin
CPT/HCPCS: G0378; J0131

== ENCOUNTER 2022-12-20 13:54 | Inpatient (IN) | payer MEDICARE ==
[~2022-12-20] VITALS: Ht 157.5 cm; Wt 47.7 kg
[2022-12-20] VITALS (18 sets, daily range): BP systolic 137–166; BP diastolic 54–75
[~2022-12-20 13:54] MED LIST changes: +AMLODIPINE BESYL5 MG PO; +CRANBERR3 PO; +GUAIFENESI100 MG/51 PO; +KEFLEX500 MG PO; +LEVOTHYROXIN75 MCG PO; +MAG OXIDE400 MG PO; +NOVOLOG100 UNIT/M SC; +PREDNISONE5 MG PO; +PROMETHAZINE HY25 M1 PO; +SALONPAS PAIN R TD; +VITAMIN D350000 UNIT PO
[2022-12-20 14:44] LABS: BASO% 1.1 % (0-3); EOS% 12.2 % (0-8); HEMATOCRIT 28.9 % (37.0-47.0); HEMOGLOBIN 8.8 g/dl (12.0-16.0); IMMATURE GRANULOCYTES 0.1 % (0.0-5.0); LYMPH% 12.5 % (15-41); MEAN CELL VOLUME 100.7 fL CALC (80.0-100.0); MEAN CORPUSCULAR HGB 30.7 pG CALC (26.0-32.0); MEAN CORPUSCULAR HGB CONC 30.4 g/dL CAL (32.0-36.0); MONO% 5.3 % (2-13); NEUT# 5.19 thou/uL (2.00-7.15); NEUT% 68.8 % (42-76); RED BLOOD COUNT 2.87 mill/uL (4.20-5.60); RED CELL DISTRI WIDTH 14.4 % (11.5-15.5)
[2022-12-20 14:58] LABS: ALBUMIN 2.4 g/dL (3.2-5.0); BILIRUBIN, TOTAL 0.4 mg/dL (0.02-1.3); POTASSIUM 4.2 mmol/l (3.5-5.1); TOTAL PROTEIN 5.2 g/dL (6.3-8.2)
[2022-12-20 15:01] LABS: CREATININE 7.3 mg/dL (0.5-1.0)
[2022-12-20 15:29] LABS: TSH, 3RD GENERATION 2.18 uIU/mL (0.47 - 4.68)
[2022-12-20 18:45] LABS: URINE BILIRUBIN - DIPSTICK NEGATIVE (NEGATIVE); URINE BLOOD DIPSTICK SMALL (NEGATIVE); URINE COLOR YELLOW; URINE GLUCOSE - DIPSTICK NEGATIVE (NEGATIVE); URINE KETONE NEGATIVE (NEGATIVE); URINE LEUK ESTERASE TRACE (NEGATIVE); URINE PROTEIN - DIPSTICK >=300 mg/dL (NEG-TRACE); URINE UROBILINOGEN - DIPSTICK 0.2 E.U./dL (0.2)
[2022-12-20 18:48] LABS: URINE NITRITE - DIPSTICK NEGATIVE (Negative)
[2022-12-20 18:53] LABS: URINE BACTERIA MANY hpf; URINE SQUAMOUS EPITHELIAL CELL FEW EPI/hpf (0-FEW)
[2022-12-21 04:22] VITALS: BP 155/55
[2022-12-21 06:45] VITALS: BP 136/42
[2022-12-21 07:10] LABS: HEMOGLOBIN 7.7 g/dl (12.0-16.0); MEAN CELL VOLUME 100.4 fL CALC (80.0-100.0); MEAN CORPUSCULAR HGB 30.9 pG CALC (26.0-32.0); MEAN CORPUSCULAR HGB CONC 30.8 g/dL CAL (32.0-36.0); RED BLOOD COUNT 2.49 mill/uL (4.20-5.60); RED CELL DISTRI WIDTH 14.5 % (11.5-15.5)
[2022-12-21 07:52] LABS: ALBUMIN 2.1 g/dL (3.2-5.0); BILIRUBIN, TOTAL 0.3 mg/dL (0.02-1.3); POTASSIUM 4.5 mmol/l (3.5-5.1); TOTAL PROTEIN 4.6 g/dL (6.3-8.2)
[2022-12-21 07:56] LABS: CREATININE 7.4 mg/dL (0.5-1.0)
[2022-12-21 15:39] VITALS: BP 121/42
[2022-12-21 19:03] VITALS: BP 150/48
[2022-12-22] VITALS (8 sets, daily range): BP systolic 140–176; BP diastolic 33–72
[2022-12-22 04:57] LABS: BASO% 1.1 % (0-3); EOS% 16.3 % (0-8); HEMATOCRIT 22.3 % (37.0-47.0); IMMATURE GRANULOCYTES 0.3 % (0.0-5.0); LYMPH% 18.2 % (15-41); MEAN CELL VOLUME 98.7 fL CALC (80.0-100.0); MEAN CORPUSCULAR HGB CONC 31.4 g/dL CAL (32.0-36.0); MONO% 9.2 % (2-13); NEUT# 4.02 thou/uL (2.00-7.15); NEUT% 54.9 % (42-76); RED BLOOD COUNT 2.26 mill/uL (4.20-5.60); RED CELL DISTRI WIDTH 14.6 % (11.5-15.5)
[2022-12-22 05:11] LABS: HEMOGLOBIN 7.1 g/dl (12.0-16.0)
[2022-12-22 05:12] LABS: ALBUMIN 1.8 g/dL (3.2-5.0); POTASSIUM 3.7 mmol/l (3.5-5.1)
[2022-12-22 05:21] LABS: CREATININE 6.7 mg/dL (0.5-1.0)
[2022-12-23] VITALS (9 sets, daily range): BP systolic 129–193; BP diastolic 45–74
[2022-12-23 05:46] LABS: MEAN CELL VOLUME 92.9 fL CALC (80.0-100.0); MEAN CORPUSCULAR HGB 30.3 pG CALC (26.0-32.0); MEAN CORPUSCULAR HGB CONC 32.6 g/dL CAL (32.0-36.0); RED BLOOD COUNT 3.4 mill/uL (4.20-5.60); RED CELL DISTRI WIDTH 16.8 % (11.5-15.5)
[2022-12-23 05:51] LABS: HEMATOCRIT 31.6 % (37.0-47.0); HEMOGLOBIN 10.3 g/dl (12.0-16.0)
[2022-12-23 05:56] LABS: POTASSIUM 4.2 mmol/l (3.5-5.1); TOTAL PROTEIN 4.3 g/dL (6.3-8.2)
[2022-12-23 06:13] LABS: BILIRUBIN, TOTAL 0.6 mg/dL (0.02-1.3); CREATININE 6.7 mg/dL (0.5-1.0); MAGNESIUM 1.2 mg/dL (1.6-2.3)
[2022-12-24 04:01] VITALS: BP 117/50
[2022-12-24 05:35] LABS: BASO% 0.3 % (0-3); HEMATOCRIT 31.8 % (37.0-47.0); IMMATURE GRANULOCYTES 0.9 % (0.0-5.0); LYMPH% 10.8 % (15-41); MEAN CELL VOLUME 93.5 fL CALC (80.0-100.0); MEAN CORPUSCULAR HGB 29.4 pG CALC (26.0-32.0); MEAN CORPUSCULAR HGB CONC 31.4 g/dL CAL (32.0-36.0); MONO% 7.6 % (2-13); NEUT# 5.53 thou/uL (2.00-7.15); NEUT% 80.4 % (42-76); RED BLOOD COUNT 3.4 mill/uL (4.20-5.60); RED CELL DISTRI WIDTH 16.1 % (11.5-15.5)
[2022-12-24 05:51] LABS: ALBUMIN 2.1 g/dL (3.2-5.0); BILIRUBIN, TOTAL 0.5 mg/dL (0.02-1.3); POTASSIUM 4.2 mmol/l (3.5-5.1); TOTAL PROTEIN 4.4 g/dL (6.3-8.2)
[2022-12-24 05:56] LABS: ALBUMIN 2.1 g/dL (3.2-5.0); MAGNESIUM 1.2 mg/dL (1.6-2.3); POTASSIUM 4.2 mmol/l (3.5-5.1)
[2022-12-24 06:10] VITALS: BP 135/56
[2022-12-24 06:10] LABS: CREATININE 7.2 mg/dL (0.5-1.0)
[2022-12-24 06:11] LABS: CREATININE 7.2 mg/dL (0.5-1.0)
[2022-12-24 15:08] VITALS: BP 113/43
[2022-12-24 20:08] VITALS: BP 145/55
[2022-12-24 20:36] VITALS: BP 145/55
[2022-12-25] VITALS (7 sets, daily range): BP systolic 131–176; BP diastolic 36–61
[2022-12-26 04:31] VITALS: BP 168/56
[2022-12-26 05:10] VITALS: BP 168/56
[2022-12-26 06:23] VITALS: BP 142/40
[2022-12-26 08:08] LABS: POTASSIUM 3.7 mmol/l (3.5-5.1)
[2022-12-26 08:12] LABS: BASO% 0.6 % (0-3); EOS% 6.4 % (0-8); HEMATOCRIT 30.5 % (37.0-47.0); HEMOGLOBIN 9.2 g/dl (12.0-16.0); IMMATURE GRANULOCYTES 0.1 % (0.0-5.0); LYMPH% 17.4 % (15-41); MEAN CORPUSCULAR HGB CONC 30.2 g/dL CAL (32.0-36.0); MONO% 8.3 % (2-13); NEUT# 5.34 thou/uL (2.00-7.15); NEUT% 67.2 % (42-76); RED BLOOD COUNT 3.07 mill/uL (4.20-5.60); RED CELL DISTRI WIDTH 15.4 % (11.5-15.5)
[2022-12-26 08:24] LABS: MEAN CELL VOLUME 99.3 fL CALC (80.0-100.0)
[2022-12-26 08:29] LABS: CREATININE 7.5 mg/dL (0.5-1.0)
[2022-12-26 14:30] VITALS: BP 166/51
[2022-12-26 18:46] VITALS: BP 161/50
[2022-12-26 19:29] VITALS: BP 161/50
[2022-12-27 04:03] VITALS: BP 161/50
[2022-12-27 06:50] VITALS: BP 172/59
[2022-12-27 09:30] LABS: ALBUMIN 2.2 g/dL (3.2-5.0); POTASSIUM 3.7 mmol/l (3.5-5.1)
[2022-12-27 09:54] LABS: CREATININE 7.4 mg/dL (0.5-1.0)
[2022-12-27 14:00] VITALS: BP 177/54
== END 2022-12-27 18:27 | disposition hospice, home (50) | DRG 683 ==
LOC: ED 13:54 → MS2 20:19
PROVIDERS: Family Medicine; Internal Medicine; Internal Medicine Nephrology; Nurse Practitioner Family; ADMIT Internal Medicine; ATTEND Internal Medicine
PROC: 30233N1 Transfusion of Nonautologous Red Blood Cells into Peripheral Vein, Percutaneous Approach (ICD-10-PCS; principal; 2022-12-22)
DX: N17.0 Acute kidney failure with tubular necrosis (principal); E87.20 Acidosis, unspecified; L12.0 Bullous pemphigoid; N39.0 Urinary tract infection, site not specified; I12.0 Hypertensive chronic kidney disease with stage 5 chronic kidney disease or end stage renal disease; E11.22 Type 2 diabetes mellitus with diabetic chronic kidney disease; N18.5 Chronic kidney disease, stage 5; E86.9 Volume depletion, unspecified; D63.1 Anemia in chronic kidney disease; N25.81 Secondary hyperparathyroidism of renal origin; E03.9 Hypothyroidism, unspecified; K52.9 Noninfective gastroenteritis and colitis, unspecified; I25.10 Atherosclerotic heart disease of native coronary artery without angina pectoris; B96.89 Other specified bacterial agents as the cause of diseases classified elsewhere; E83.42 Hypomagnesemia; R62.7 Adult failure to thrive; Z51.5 Encounter for palliative care; Z66 Do not resuscitate; Z79.4 Long term (current) use of insulin; Z95.5 Presence of coronary angioplasty implant and graft; Z79.02 Long term (current) use of antithrombotics/antiplatelets; Z53.20 Procedure and treatment not carried out because of patient's decision for unspecified reasons
CPT/HCPCS: J0692; J3475; P9016; Q5106 EC; S0164